=== PATIENT | female | born 1945 | race Caucasian/White ===

== ENCOUNTER → 2016-04-16 | Outpatient (CLI) | payer OTHER ==
[~2016-04-16] MED LIST: CALCIUM 600 +1 EAC4 PO; CALCIUM 600 MG1 EACH PO; ERGOCALCIF50000 UNIT PO; FEMARA2.5 MG PO; FLAGYL500 MG PO; PHENTERMINE H37.5 MG PO; TRANSDERM-SCO1 PATCH TD; VITAMIN D2000 UNIT PO; VOLTAREN 1% GE100 GM TP; XANAX1 MG PO
== END | disposition home or self-care (01) ==
DX: M17.12 Unilateral primary osteoarthritis, left knee (principal); R26.2 Difficulty in walking, not elsewhere classified; M62.81 Muscle weakness (generalized); M25.662 Stiffness of left knee, not elsewhere classified
CPT/HCPCS: 97110 GP; 97150 GO; 97161 GP; 97165 GO; G8978 GP; G8979 GP; G8980 GP; G8987 GO; G8988 GO; G8989 GO

== ENCOUNTER 2016-05-27 06:41 | Inpatient (IN) | payer OTHER ==
[~2016-05-27] VITALS: Ht 165.1 cm; Wt 88.2 kg
[~2016-05-27 06:41] MED LIST changes: +CALCIUM 600 +1 EA16 PO; +CALCIUM 600 +1 EAC3 PO; +IRON325 M1 PO; +MOBIC15 MG PO; +TYLENOL EXTRA500 MG PO
[2016-05-27 07:44] VITALS: BP 127/74
[2016-05-27 12:16] LABS: HEMATOCRIT 38.6 % (36.0-46.0); MCH 28.9 PG (29.0-34.0); MCHC 31.1 G/DL (30.0-36.0); MEAN PLAT.VOLUME 9.6 uM^3 (9.5-12.4); PLATELET COUNT 253 K/uL (156-360); RBC DIS.WIDTH-SD 44.4 % (39-53); RED BLOOD COUNT 4.15 M/uL (3.80-5.20); WHITE BLOOD COUNT 6.2 K/uL (4.1-10.2)
[2016-05-27 14:59] LABS: GFR ESTIMATE (CALCULATED) > 59 mL/min/
[2016-05-27 16:53] VITALS: BP 167/78
[2016-05-27 20:03] VITALS: BP 154/81
[2016-05-28 00:10] VITALS: BP 169/90
[2016-05-28 04:12] VITALS: BP 166/82
[2016-05-28 08:09] LABS: ALKALINE PHOSPHATASE 54 IU/L (3-129); ANION GAP 9 MEQ/L (2-14); CHLORIDE 97 MEQ/L (99-109); GFR ESTIMATE (CALCULATED) > 59 mL/min/; GLUCOSE 124 mg/dL (70-99); POTASSIUM 4.1 MEQ/L (3.7-5.4); SAMPLE HEMOLYSIS CHECK 0; SAMPLE ICTERIC CHECK 0; SAMPLE LIPEMIA CHECK 0; SODIUM 129 MEQ/L (136-147); TOTAL BILIRUBIN 0.9 MG/DL (0.0-1.0); UREA NITROGEN (BUN) 11 mg/dL (9-23)
[2016-05-28 08:26] LABS: MCH 29.3 PG (29.0-34.0); MCHC 32.6 G/DL (30.0-36.0); RBC DIS.WIDTH-CV 12.6 % (11.8-14.6); RBC DIS.WIDTH-SD 41.4 % (39-53)
[2016-05-28 08:30] VITALS: BP 184/90
[2016-05-28 09:05] LABS: MEAN PLAT.VOLUME 9.4 uM^3 (9.5-12.4)
[2016-05-28 09:06] LABS: PLATELET COUNT 163 K/uL (156-360)
[2016-05-28 12:26] VITALS: BP 179/93
[2016-05-28 16:54] VITALS: BP 148/86
[2016-05-28 20:00] VITALS: BP 162/80
[2016-05-29 00:07] VITALS: BP 149/79
[2016-05-29 04:27] VITALS: BP 158/83
[2016-05-29 06:28] LABS: HEMATOCRIT 36.7 % (36.0-46.0); MCV 86.2 FL (83-99)
[2016-05-29 08:17] VITALS: BP 164/83
[2016-05-29] MEDS ORDERED: LOVENOX40 MG/0.4 SC (09:01)
[2016-05-29] MEDS ORDERED: DOCUSATE SODIU100 MG PO (09:02)
[2016-05-29] MEDS ORDERED: HYDROCODON-ACE1 EAC7 PO (09:02)
[2016-05-29 11:54] VITALS: BP 139/78
== END 2016-05-29 16:57 | disposition home or self-care (01) | DRG 470 ==
LOC: 2SOUTH 06:41 → 3EAST 16:33 → 2SOUTH 16:34 → 3EAST 05-29 16:57
PROVIDERS: Orthopaedic Surgery
PROC: 0SRD0J9 Replacement of Left Knee Joint with Synthetic Substitute, Cemented, Open Approach (ICD-10-PCS; principal; 2016-05-27)
DX: M17.12 Unilateral primary osteoarthritis, left knee (principal); E87.1 Hypo-osmolality and hyponatremia; K44.9 Diaphragmatic hernia without obstruction or gangrene; Z85.3 Personal history of malignant neoplasm of breast; Z90.5 Acquired absence of kidney
CPT/HCPCS: 73560; 80048; 80053; 82565; 84295; 85014; 85018; 85027; 87086; C1713; J0690; J1170; J1650; J2250; J2405; J2765; J7050